=== PATIENT | male | born 1940 | race Caucasian/White ===

== ENCOUNTER 2016-06-17 22:42 | Emergency (ER) | payer MEDICARE, BC ==
[2016-06-17 23:10] VITALS: BP 155/122
--- NOTE | 2016-06-17 23:52 | EDM.PDOC ---
ED HPI ENT - General Chief Complaint: ENT Problem Stated Complaint: SORE THROAT Time Seen by Provider: 06/17/16 23:40 Source of Information: Reports: Patient History Limitations: Reports: No limitations - History of Present Illness INITIAL COMMENTS - FREE TEXT/NARRATIVE: This 76 yo male patient reports to the ED with a 6 day history of a sore throat. The patient reports he had surgery on Saturday and has had a very sore throat since that time. The patient reports instead of his symptoms getting better they have been getting worse. The patient has a history of diabetes. Symptom Onset Date: 06/11/16 Timing/Duration: Reports: Constant, Getting worse Severity: severe Location: Reports: throat Quality: Reports: Ache, Sharp Improves with: Reports: None Worsens with: Reports: None Associated Symptoms: Reports: no other symptoms - Related Data Allergies/ADRs: Allergies Allergy/AdvReac Type Severity Reaction Status Date / Time griseofulvin Allergy Itching Verified 06/17/16 23:15 Home Meds: Home Meds Acetaminophen [Tylenol Extra Strength] 1,000 mg PO Q6HR PRN 06/21/15 [History] Aspirin [Adult Low Dose Aspirin EC] 81 mg PO DAILY 06/21/15 [History] Clopidogrel [Plavix] 75 mg PO DAILY 06/21/15 [History] Finasteride 5 mg PO DAILY 06/21/15 [History] Hydrochlorothiazide 25 mg PO DAILY 06/21/15 [History] Insulin Aspart [Novolog Flexpen] 0 - 20 units INJECT ASDIRECTED 06/21/15 [ History] Insulin Detemir [Levemir] 60 units INJECT ACDINNER 06/21/15 [History] Insulin Detemir [Levemir] 70 units INJECT ACBREAKFAST 06/21/15 [History] Latanoprost [Xalatan 0.005% Ophth Soln] 1 drop EYEBOTH BEDTIME 06/21/15 [History ] Lisinopril 40 mg PO DAILY 06/21/15 [History] Metoprolol Succinate [Toprol XL] 50 mg PO DAILY 06/21/15 [History] Mirabegron [Myrbetriq] 50 mg PO DAILY 06/21/15 [History] Oxybutynin [Oxybutynin ER] 5 mg PO DAILY 06/21/15 [History] Potassium Chloride [Klor-Con M20] 20 meq PO DAILY 06/21/15 [History] Pravastatin Sodium [Pravastatin (Pravachol)] 40 mg PO BEDTIME 06/21/15 [History] Tamsulosin [Flomax] 0.4 mg PO BEDTIME 06/21/15 [History] Past Medical History Cardiovascular History: Reports: Hypertension Genitourinary History: Reports: UTI, recurrent Endocrine/Metabolic History: Reports: Diabetes, type II - Past Surgical History Other Cardiovascular Surgeries/Procedures: 2 stents in may 2015 Other Musculoskeletal Surgeries/Procedures:: Right knee surgery Social & Family History - Tobacco Use Smoking Status *Q: Never Smoker Second Hand Smoke Exposure: No - Caffeine Use Caffeine Use: Reports: Coffee, Soda, Tea - Alcohol Use Date of Last Drink: 06/10/16 - Recreational Drug Use Recreational Drug Use: No ED ROS ENT - Review of Systems Review Of Systems: ROS reveals no pertinent complaints other than HPI. ED EXAM, ENT - Physical Exam Exam: See Below Exam Limited By: No limitations General Appearance: alert, WD/WN, moderate distress Eye Exam: bilateral eye: EOMI, normal inspection, PERRL Ears: normal external exam, other (bilateral hearing aids) Nose: normal inspection, normal mucousa, no blood Mouth/Throat: Normal gums, Normal lips, Normal teeth, Pharyngeal erythema Head: atraumatic, normocephalic Neck: normal inspection, supple, non-tender, full range of motion, lymphadenopathy (L), lymphadenopathy (R) Respiratory/Chest: no respiratory distress, lungs clear, normal breath sounds, no accessory muscle use, chest non-tender Cardiovascular: normal peripheral pulses, regular rate, rhythm, no edema, no gallop, no JVD, no murmur, no rub GI/Abdominal: normal bowel sounds, soft, non tender, no organomegaly, no distention, no abnormal bruit, no mass (Male) Exam: Deferred Rectal (Males) Exam: Deferred Back: normal inspection, full range of motion Extremities: normal inspection, normal range of motion, non-tender, no pedal edema, normal capillary refill Neurological: alert, oriented, CN II-XII intact, normal cognition, normal gait, normal reflexes, no motor/sensory deficits Psychiatric: normal affect, normal mood Skin: Warm, Dry, Intact, Normal color, No rash Lymphatic: no adenopathy Course - Vital Signs Last Recorded V/S: Last Vital Signs Temp 36.9 C 06/17/16 23:03 Pulse 67 06/17/16 23:03 Resp 16 06/17/16 23:03 BP 155/122 H 06/17/16 23:03 Pulse Ox 96 06/17/16 23:03 - Orders/Labs/Meds Orders: Active Orders 24 hr Category Date Time Status Pen G Roland/Pen G Procaine [Bicillin C-R 600/600] Med 06/18/16 00:26 Once 1.2 millunits IM ONETIME ONE Medication Orders Penicillin G Procaine/Benzathine (Bicillin C-R 600/600) 1.2 millunits IM ONETIME ONE Stop: 06/18/16 00:27 Meds: Medications Generic Name Dose Route Start Last Admin Trade Name Freq PRN Reason Stop Dose Admin Penicillin G Procaine/Benzathine 1.2 millunits 06/18/16 00:26 Bicillin C-R 600/600 IM 06/18/16 00:27 ONETIME ONE Departure - Departure Time of Disposition: 00:27 Disposition: Home, Self-Care 01 Condition: fair Clinical Impression: Pharyngitis Qualifiers: Pharyngitis/tonsillitis etiology: unspecified etiology Qualified Code(s): J02.9 - Acute pharyngitis, unspecified Instructions: Pharyngitis, [id number] Forms: ED Department Discharge Care Plan Goals: The patient was advised of the examination and lab results during the visit. The patient was given an injection of Bicillin while in the ED. The patient was encouraged to continue to take [id number] medications for temporary symptom relief. If the patient has any additional symptoms or concerns, the patient should follow-up with his primary care facility or return to the emergency department. - My Orders Last 24 Hours: My Active Orders 06/18/16 00:26 Pen G Roland/Pen G Procaine [Bicillin C-R 600/600] 1.2 millunits IM ONETIME ONE - Assessment/Plan Last 24 Hours: My Active Orders 06/18/16 00:26 Pen G Roland/Pen G Procaine [Bicillin C-R 600/600] 1.2 millunits IM ONETIME ONE
[2016-06-18] MEDS ORDERED: Penicillin G Benzathine/Procaine 600-600 1.2 Millunits/2 ML Syringe IM ONE (00:26)
== END 2016-06-18 00:41 | disposition home or self-care (01) ==
LOC: DL.ED 22:42
DX: J02.9 Acute pharyngitis, unspecified (principal); I10 Essential (primary) hypertension; E11.9 Type 2 diabetes mellitus without complications; Z87.440 Personal history of urinary (tract) infections; Z79.82 Long term (current) use of aspirin; Z79.4 Long term (current) use of insulin; Z79.899 Other long term (current) drug therapy; Z88.8 Allergy status to other drugs, medicaments and biological substances
CPT/HCPCS: 87081; 87430; 96372; 99283; J0558

== ENCOUNTER 2017-02-02 21:17 | Emergency (ER) | payer MEDICARE, BC ==
--- NOTE | 2017-02-02 21:45 | EDM.PDOC ---
ED HPI GENERAL MEDICAL PROBLEM - General Stated Complaint: IMPACTION, PAIN Time Seen by Provider: 02/02/17 21:40 Source of Information: Reports: Patient History Limitations: Reports: No Limitations - History of Present Illness INITIAL COMMENTS - FREE TEXT/NARRATIVE: pt impatient and cranky. hard to get good HPI. states unable void all day due to faecal impaction which had occurred many years ago. had no BM since yesterday. wants markham now. Bladder Pain Score (Numeric/FACES): 8 - Related Data Allergies Allergy/AdvReac Type Severity Reaction Status Date / Time griseofulvin Allergy Itching Verified 02/02/17 21:51 Home Meds: Home Meds Acetaminophen [Tylenol Extra Strength] 1,000 mg PO Q6HR PRN 06/21/15 [History] Aspirin [Adult Low Dose Aspirin EC] 81 mg PO DAILY 06/21/15 [History] Finasteride 5 mg PO DAILY 06/21/15 [History] Hydrochlorothiazide 25 mg PO DAILY 06/21/15 [History] Insulin Aspart [Novolog Flexpen] 40 - 50 units INJECT ASDIRECTED 06/21/15 [ History] Latanoprost [Xalatan 0.005% Ophth Soln] 1 drop EYEBOTH BEDTIME 06/21/15 [History ] Lisinopril 40 mg PO DAILY 06/21/15 [History] Metoprolol Succinate [Toprol XL] 50 mg PO DAILY 06/21/15 [History] Mirabegron [Myrbetriq] 50 mg PO DAILY 06/21/15 [History] Potassium Chloride [Klor-Con M20] 10 meq PO BID 06/21/15 [History] Pravastatin Sodium [Pravastatin (Pravachol)] 40 mg PO ACDINNER 06/21/15 [History ] Tamsulosin [Flomax] 0.4 mg PO ACDINNER 06/21/15 [History] Past Medical History Cardiovascular History: Reports: Hypertension Genitourinary History: Reports: UTI, Recurrent Endocrine/Metabolic History: Reports: Diabetes, Type II - Past Surgical History Other Cardiovascular Surgeries/Procedures: 2 stents in may 2015 Other Musculoskeletal Surgeries/Procedures:: Right knee surgery Social & Family History - Tobacco Use Smoking Status *Q: Never Smoker Second Hand Smoke Exposure: No - Caffeine Use Caffeine Use: Reports: Coffee, Soda, Tea - Recreational Drug Use Recreational Drug Use: No ED ROS GENERAL - Review of Systems Review Of Systems: ROS reveals no pertinent complaints other than HPI. ED EXAM, RENAL/ - Physical Exam Exam: See Below Exam Limited By: No Limitations General Appearance: Alert, WD/WN, Mild Distress, Other (impatient and cranky) Ears: Hearing Grossly Normal Throat/Mouth: Normal Voice, No Airway Compromise Head: Atraumatic Neck: Non-Tender, Full Range of Motion Respiratory/Chest: No Respiratory Distress Cardiovascular: Regular Rate, Rhythm GI/Abdominal: Tender, Other (suprapubic) Neurological: Alert, Oriented, Normal Cognition, Normal Gait, No Motor/Sensory Deficits Psychiatric: Anxious Skin Exam: Warm, Dry, Normal Color Lymphatic: No Adenopathy Course - Vital Signs Last Recorded V/S: Last Vital Signs Temp 37.1 C 02/02/17 22:24 Pulse 62 02/02/17 22:24 Resp 18 02/02/17 22:24 BP 185/70 H 02/02/17 22:24 Pulse Ox 96 02/02/17 22:24 - Orders/Labs/Meds Orders: Active Orders 24 hr Category Date Time Status Enema [RC] ASDIRECTED Care 02/02/17 23:14 Active [place] Catheter Insertion [Insert Urinary Catheter] [OM. Care 02/02/17 21:45 Ordered PC] Stat Urinary Catheter Assessment [RC] ASDIRECTED Care 02/02/17 21:40 Active Labs: Laboratory Tests 02/02/17 Range/Units 22:47 Urine Color Yellow (YELLOW) Urine Appearance Clear (CLEAR) Urine pH 6.5 (5.0-9.0) Ur Specific [place] 1.025 (1.005-1.030) Urine Protein >=300 H (NEGATIVE) Urine Glucose (UA) 250 H (NEGATIVE) Urine Ketones Negative (NEGATIVE) Urine Occult Blood Trace-intact H (NEGATIVE) Urine Nitrite Negative (NEGATIVE) Urine Bilirubin Negative (NEGATIVE) Urine Urobilinogen 0.2 (0.2-1.0) mg/dL Ur Leukocyte Esterase Negative (NEGATIVE) Urine RBC 0-5 /HPF Urine WBC 0-5 (0-5/HPF) /HPF Ur Epithelial Cells Few /HPF Urine Bacteria Few (0-FEW/HPF) /HPF Urine Yeast Few H (0/HPF) /HPF - Re-Assessments/Exams Free Text/Narrative Re-Assessment/Exam: 02/03/17 00:58 s/p enema did poop now feeling better. wants markham removed and wants home. Departure - Departure Time of Disposition: 01:00 Disposition: Home, Self-Care 01 Condition: Good Clinical Impression: Constipation by delayed colonic transit - Discharge Information Instructions: Constipation, Adult Forms: ED Department Discharge Additional Instructions: 1) avoid solid foods next 48 hours 2) follow up with family doctor or recheck as needed - My Orders Last 24 Hours: My Active Orders 02/02/17 21:40 Urinary Catheter Assessment [RC] ASDIRECTED 02/02/17 21:45 [place] Catheter Insertion [Insert Urinary Catheter] [OM.PC] Stat 02/02/17 23:14 Enema [RC] ASDIRECTED - Assessment/Plan Last 24 Hours: My Active Orders 02/02/17 21:40 Urinary Catheter Assessment [RC] ASDIRECTED 02/02/17 21:45 [place] Catheter Insertion [Insert Urinary Catheter] [OM.PC] Stat 02/02/17 23:14 Enema [RC] ASDIRECTED
[2017-02-02 22:26] VITALS: BP 185/70
== END 2017-02-03 01:07 | disposition home or self-care (01) ==
LOC: DL.ED 21:17
DX: K59.01 Slow transit constipation (principal); I10 Essential (primary) hypertension; E11.9 Type 2 diabetes mellitus without complications; Z88.8 Allergy status to other drugs, medicaments and biological substances; Z79.82 Long term (current) use of aspirin; Z79.4 Long term (current) use of insulin; Z79.899 Other long term (current) drug therapy
CPT/HCPCS: 51702; 74000; 81001; 99283

== ENCOUNTER 2017-08-09 10:29 | Emergency (ER) | payer MEDICARE, BC ==
[2017-08-09 11:48] VITALS: BP 222/76
--- NOTE | 2017-08-09 12:29 | EDM.PDOC ---
ED HPI GENERAL MEDICAL PROBLEM - General Chief Complaint: ENT Problem Stated Complaint: SORE THROAT X 3 DAYS Time Seen by Provider: 08/09/17 12:20 Source of Information: Reports: Patient, RN, RN Notes Reviewed History Limitations: Reports: No Limitations - History of Present Illness INITIAL COMMENTS - FREE TEXT/NARRATIVE: Patient presents to ER stating that 3 days ago he developed a sore throat left side more so than right. He has a runny nose. No fever, chills or shortness of breath. Onset: Gradual Duration: Getting Worse Location: Reports: Other (sore throat) Quality: Reports: Ache Severity: Moderate Improves with: Reports: None Worsens with: Reports: None Associated Symptoms: Reports: No Other Symptoms Back Pain Score (Numeric/FACES): 7 - Related Data Allergies Allergy/AdvReac Type Severity Reaction Status Date / Time griseofulvin Allergy Itching Verified 02/02/17 21:51 Home Meds: Home Meds Acetaminophen [Tylenol Extra Strength] 1,000 mg PO Q6HR PRN 06/21/15 [History] Aspirin [Adult Low Dose Aspirin EC] 81 mg PO DAILY 06/21/15 [History] Finasteride 5 mg PO DAILY 06/21/15 [History] Hydrochlorothiazide 25 mg PO DAILY 06/21/15 [History] Insulin Aspart [Novolog Flexpen] 40 - 50 units INJECT ASDIRECTED 06/21/15 [ History] Latanoprost [Xalatan 0.005% Ophth Soln] 1 drop EYEBOTH BEDTIME 06/21/15 [History ] Lisinopril 40 mg PO DAILY 06/21/15 [History] Metoprolol Succinate [Toprol XL] 50 mg PO DAILY 06/21/15 [History] Mirabegron [Myrbetriq] 50 mg PO DAILY 06/21/15 [History] Potassium Chloride [Klor-Con M20] 10 meq PO BID 06/21/15 [History] Pravastatin Sodium [Pravastatin (Pravachol)] 40 mg PO ACDINNER 06/21/15 [History ] Tamsulosin [Flomax] 0.4 mg PO ACDINNER 06/21/15 [History] Past Medical History HEENT History: Reports: Cataract, Glaucoma, Hard of Hearing, Impaired Vision Cardiovascular History: Reports: Hypertension Gastrointestinal History: Reports: Irritable Bowel Syndrome Genitourinary History: Reports: Prostate Disorder, UTI, Recurrent Musculoskeletal History: Reports: Back Pain, Chronic Endocrine/Metabolic History: Reports: Diabetes, Type II - Past Surgical History HEENT Surgical History: Reports: Tonsillectomy Other HEENT Surgeries/Procedures: Removed at age 5 Other Cardiovascular Surgeries/Procedures: 2 stents in may 2015 GI Surgical History: Reports: Colonoscopy Other Musculoskeletal Surgeries/Procedures:: Right knee surgery Social & Family History - Family History Family Medical History: Noncontributory - Tobacco Use Smoking Status *Q: Former Smoker Used Tobacco, but Quit: Yes Month/Year Tobacco Last Used: 03/1979 - Caffeine Use Caffeine Use: Reports: Coffee - Recreational Drug Use Recreational Drug Use: No ED ROS ENT - Review of Systems Review Of Systems: ROS reveals no pertinent complaints other than HPI. ED EXAM, ENT - Physical Exam Exam: See Below Exam Limited By: No Limitations General Appearance: Alert, WD/WN, No Apparent Distress Eye Exam: Bilateral Eye: EOMI, Normal Inspection Ears: Normal External Exam, Normal Canal, Hearing Grossly Normal, Normal TMs Nose: Normal Inspection, Normal Mucousa, No Blood Mouth/Throat: Other (erythema pharynx) Head: Atraumatic, Normocephalic Neck: Normal Inspection, Supple, Non-Tender, Full Range of Motion Respiratory/Chest: No Respiratory Distress, Lungs Clear, Normal Breath Sounds, No Accessory Muscle Use, Chest Non-Tender Cardiovascular: Normal Peripheral Pulses, Regular Rate, Rhythm, No Edema, No Gallop, No JVD, No Murmur, No Rub GI/Abdominal: Normal Bowel Sounds, Soft, Non-Tender, No Organomegaly, No Distention, No Abnormal Bruit, No Mass (Male) Exam: Deferred Rectal (Males) Exam: Deferred Back: Normal Inspection, Full Range of Motion Extremities: Normal Inspection, Normal Range of Motion, Non-Tender, No Pedal Edema, Normal Capillary Refill Neurological: Alert, Oriented, CN II-XII Intact, Normal Cognition, Normal Gait, Normal Reflexes, No Motor/Sensory Deficits Psychiatric: Normal Affect, Normal Mood Skin: Warm, Dry, Intact, Normal Color, No Rash Lymphatic: No Adenopathy Course - Vital Signs Last Recorded V/S: Last Vital Signs Temp 98.9 F 08/09/17 11:44 Pulse 77 08/09/17 11:44 Resp 14 08/09/17 11:44 BP 222/76 H 05/25/18 11:44 Pulse Ox 95 08/09/17 11:44 - Orders/Labs/Meds Orders: Active Orders 24 hr Category Date Time Status CULTURE STREP A CONFIRMATION [RM] Stat Lab 08/09/17 11:33 Results STREP SCRN A RAPID W CULT CONF [RM] Stat Lab 08/09/17 11:33 Results Labs: Rapid strep: Negative. Influenza A and B: Negative. Departure - Departure Time of Disposition: 12:29 Disposition: Home, Self-Care 01 Condition: Fair Clinical Impression: Pharyngitis Qualifiers: Pharyngitis/tonsillitis etiology: unspecified etiology Qualified Code(s): J02.9 - Acute pharyngitis, unspecified - Discharge Information Instructions: Pharyngitis, [id number], Sore Throat, [id number] Referrals: PCP,None [Primary Care Provider] - Forms: ED Department Discharge Additional Instructions: RX: Augmentin Follow up with your primary care facility - My Orders Last 24 Hours: My Active Orders 08/09/17 11:33 CULTURE STREP A CONFIRMATION [RM] Stat STREP SCRN A RAPID W CULT CONF [RM] Stat - Assessment/Plan Last 24 Hours: My Active Orders 08/09/17 11:33 CULTURE STREP A CONFIRMATION [RM] Stat STREP SCRN A RAPID W CULT CONF [RM] Stat
== END 2017-08-09 12:50 | disposition home or self-care (01) ==
LOC: DL.ED 10:29
DX: J02.9 Acute pharyngitis, unspecified (principal); I10 Essential (primary) hypertension; E11.9 Type 2 diabetes mellitus without complications; Z88.8 Allergy status to other drugs, medicaments and biological substances; Z79.82 Long term (current) use of aspirin; Z79.899 Other long term (current) drug therapy; Z79.4 Long term (current) use of insulin; Z87.891 Personal history of nicotine dependence
CPT/HCPCS: 87081; 87430; 87804; 99282